=== PATIENT | male | born 1950 | race Caucasian/White ===

== ENCOUNTER → 2021-06-05 | Outpatient (CLI) | payer MEDICARE ==
[2014-07-02 08:30] VITALS: BP 131/82
[~2021-06-05] MED LIST: ASCO100019 PO; ASPI325T8 PO; CHOL10003 PO; CIPR500T2 PO; DILT180C2 PO; HYDR-2765 PO; OMEP40CA7 PO; ONDA4TAB12 PO; TAMS0.4C97 PO
--- NOTE | 2021-06-05 11:31 | RAD ---
US TESTICULAR History: Reason: SPERMATOCELE / Spl. Instructions: / History: Comparison: None. Technique: Multiple grayscale, color flow Doppler and Doppler spectral analysis images of the scrotum are obtained. Findings: Prior right testicular removal. Left testicle measures 5.1 x 3.7 x 2.4 cm. Left testicle demonstrates normal parenchymal echogenici ty. Multiloculated septated left epididymal head cyst with internal complexity measures up to 2.7 x 2 .4 x 1.7 cm. Small left hydrocele. No varicocele. No scrotal hyperemia or swelling. IMPRESSION: 1. Multiloculated septated left epididymal head cyst with internal complexity. Electronically signed by: Adi Blair DO (06/05/2021 11:29 AM) [id number]
== END ==
LOC: US 08:10
PROVIDERS: ATTEND Specialist
DX: N50.3 Cyst of epididymis (principal); N43.3 Hydrocele, unspecified; N43.41 Spermatocele of epididymis, single
CPT/HCPCS: 76870